=== PATIENT | female | born 1975 | race Caucasian/White ===

== ENCOUNTER 2021-01-28 03:33 | Emergency (ER) | payer MEDICARE, MEDICAID ==
[~2021-01-28] VITALS: Ht 157.5 cm; Wt 93.0 kg
[2021-01-28] MEDS ORDERED: ondansetron/PF 4mg/2ml inj IV ONE (04:15)
[2021-01-28] MEDS ORDERED: normal saline 1000ML IV soln IVB ONE (04:15)
[2021-01-28 04:30] LABS: BASOPHILS # (AUTO) 0.1 X10'3 (0-0.2); BASOPHILS % (AUTO) 0.3 % (0-1); EOSINOPHILS # (AUTO) 0.9 X10'3 (0-0.9); EOSINOPHILS % (AUTO) 4.6 % (0-6); HEMATOCRIT 46.4 % (35.0-45.0); HEMOGLOBIN 15.7 g/dl (12.0-16.0); LYMPHOCYTES # (AUTO) 1.4 X10'3 (1.1-4.8); LYMPHOCYTES % (AUTO) 7.1 % (21-51); MEAN CORPUSCULAR HEMOGLOBIN 29.2 PG (27.0-31.0); MEAN CORPUSCULAR HGB CONC 33.9 g/dL (33.0-36.5); MEAN CORPUSCULAR VOLUME 86.3 FL (78-98); MEAN PLATELET VOLUME 7.7 FL (7.4-10.4); MONOCYTES # (AUTO) 0.6 X10'3 (0-0.9); MONOCYTES % (AUTO) 3.1 % (2-12); NEUTROPHILS # (AUTO) 16.2 X10'3 (1.8-7.7); NEUTROPHILS % (AUTO) 84.9 % (42-75); PLATELET COUNT 417 X10'3 (140-440); RED BLOOD COUNT 5.38 X10'6 (4.20-5.60); RED CELL DISTRIBUTION WIDTH 14.7 % (11.5-14.5); WHITE BLOOD COUNT 19.1 X10'3 (4.5-11.0)
[2021-01-28 04:43] LABS: URINE HCG NEGATIVE (NEG)
[2021-01-28 04:45] LABS: ALANINE AMINOTRANSFERASE 34 U/L (12-78); ALBUMIN/GLOBULIN RATIO 0.9 (1.1-1.5); ALKALINE PHOSPHATASE 71 IU/L (46-116); ANION GAP 16 (8-16); ASPARTATE AMINO TRANSFERASE 23 U/L (10-37); BILIRUBIN,TOTAL 0.6 MG/DL (0.1-1.0); BLOOD UREA NITROGEN 12 MG/DL (7-18); BUN/CREATININE RATIO 11.5 (6.6-38.0); CALCIUM 8.5 MG/DL (8.5-10.1); CHLORIDE 105 MMOL/L (99-107); CREATININE 1.04 MG/DL (0.40-0.90); GLUCOSE 165 MG/DL (70-104); LIPASE 70 U/L (73-393); POTASSIUM 4.2 MMOL/L (3.5-5.1); SODIUM 139 MMOL/L (135-145); TOTAL CARBON DIOXIDE 17.9 MMOL/L (24-32); TOTAL PROTEIN 8.5 G/DL (6.4-8.2); eGFR 58 ML/MIN
[2021-01-28 04:55] LABS: CLARITY,URINE SLIGHTLY CLOUDY (Clear); COLOR,URINE YELLOW (Yellow); UA COLLECTION TYPE CLN CATCH MIDSTREAM
[2021-01-28 04:56] LABS: GLUCOSE, URINE NEGATIVE (Neg); KETONES,URINE 15 mg/dl (Neg); LEUKOCYTE ESTERASE ,URINE NEGATIVE (Neg); NITRITES, URINE NEGATIVE (Neg); OCCULT BLOOD,URINE SMALL (Neg); PROTEIN,URINE TRACE mg/dl (Neg); UROBILINOGEN,URINE 0.2 E.U/dL (0.2-1.0)
[2021-01-28 05:00] LABS: BACTERIA,URINE 1+ /HPF (Neg); MUCUS STRANDS FEW /LPF (Neg); SQUAMOUS EPITHELIAL CELL,UR MODERATE /LPF (FEW)
[2021-01-28] MEDS ORDERED: CefTRIAXone 2gm/D5W 50ml BAG 50 ML IV ONE (06:05)
[2021-01-28] MEDS ORDERED: DOXY100C43 PO (08:27)
[2021-01-28] MEDS ORDERED: ALBU18HF2 INH (08:27)
[2021-01-28] MEDS ORDERED: PRED20TA PO (08:27)
[2021-01-28 08:56] VITALS: BP 152/88
== END 2021-01-28 09:00 | disposition home or self-care (01) ==
LOC: ER 03:34
DX: J20.9 Acute bronchitis, unspecified (principal); R05.9 Cough, unspecified; I88.0 Nonspecific mesenteric lymphadenitis; R10.84 Generalized abdominal pain; R19.7 Diarrhea, unspecified; F17.200 Nicotine dependence, unspecified, uncomplicated; F12.90 Cannabis use, unspecified, uncomplicated; Z79.2 Long term (current) use of antibiotics; Z79.899 Other long term (current) drug therapy
CPT/HCPCS: 36415; 71045; 74176; 80053; 81001; 81025; 83605; 83690; 84145; 85025; 87040; 87088; 96361; 96365; 96375; 99285; J0696; J2405; J7030

== ENCOUNTER 2021-10-15 12:12 | Day surgery (SDC) | payer MEDICARE, MEDICAID ==
[2021-10-13 09:30] LABS: ALBUMIN 3.7 G/DL (3.4-5.0); ALBUMIN/GLOBULIN RATIO 0.8 (1.1-1.5); ALKALINE PHOSPHATASE 68 IU/L (46-116); BLOOD UREA NITROGEN 6 MG/DL (7-18); CHLORIDE 105 MMOL/L (99-107); CREATININE 0.86 MG/DL (0.40-0.90); PRE OP ALT 31 U/L (30-65); PRE OP ANION GAP 10 (8-16); PRE OP AST 39 U/L (10-37); PRE OP BILIRUB, TOTAL 0.4 MG/DL (0.0-1.0); PRE OP GLUCOSE 94 MG/DL (70-104); PRE OP POTASSIUM 4.5 MMOL/L (3.4-5.1); PRE OP SODIUM 138 MMOL/L (135-145); TOTAL CARBON DIOXIDE 22.9 MMOL/L (24-32); TOTAL PROTEIN 8.2 G/DL (6.4-8.2); eGFR 72 ML/MIN
[2021-10-13 09:36] LABS: BASOPHILS # (AUTO) 0.1 X10'3 (0-0.2); BASOPHILS % (AUTO) 0.9 % (0-1); EOSINOPHILS # (AUTO) 0.2 X10'3 (0-0.9); EOSINOPHILS % (AUTO) 2.9 % (0-6); LYMPHOCYTES # (AUTO) 2.9 X10'3 (1.1-4.8); LYMPHOCYTES % (AUTO) 33.5 % (21-51); MEAN CORPUSCULAR HEMOGLOBIN 28.7 PG (27.0-31.0); MEAN CORPUSCULAR HGB CONC 33.4 g/dL (33.0-36.5); MEAN PLATELET VOLUME 8.2 FL (7.4-10.4); MONOCYTES # (AUTO) 0.6 X10'3 (0-0.9); MONOCYTES % (AUTO) 6.8 % (2-12); NEUTROPHILS # (AUTO) 4.8 X10'3 (1.8-7.7); NEUTROPHILS % (AUTO) 55.9 % (42-75); PRE OP HEMOGLOBIN 14.4 g/dL (12.0-16.0); PRE OP PLATELET COUNT 317 X10'3 (140-440); RED CELL DISTRIBUTION WIDTH 15.2 % (11.5-14.5)
[~2021-10-15] VITALS: Ht 162.6 cm; Wt 85.0 kg
[~2021-10-15 12:12] MED LIST: INDOCYANINE GREEN 25 MG/10 ML VIAL IV ONE; NO HOME MEDS; ceFAZolin inj. 2,000 MG in dextrose 5%-water 100 ML IV ONE; famotidine 20mg tablet PO ONE; ringers solution, lacted 1,000 ML IV SCH
[2021-10-15 12:53] VITALS: BP 138/74
[2021-10-15] MEDS ORDERED: LIDOcaine 1% 30ml preserv. free vial ONE (12:55)
[2021-10-15] MEDS ORDERED: BUPIVAcaine/PF 2.5 mg/ml (0.25%) 30ml vial ONE (12:55)
[2021-10-15] MEDS ORDERED: sevoflurane 250ml liquid IH ONE (13:57)
[2021-10-15] MEDS ORDERED: neostigmine methylsulfate 1 MG/ML 10ml vial ONE (13:57)
[2021-10-15] MEDS ORDERED: ondansetron/PF 4mg/2ml inj ONE (13:57)
[2021-10-15] MEDS ORDERED: dexamethasone sod phosphate 10mg/ml inj ONE (13:57)
[2021-10-15] MEDS ORDERED: ketorolac trometh. 30mg/ml inj. ONE (13:57)
[2021-10-15] MEDS ORDERED: glycopyrrolate 0.2mg/ml inj ONE (13:57)
[2021-10-15] MEDS ORDERED: proCHLORperazine 10 MG/2 ml inj IV PRN (14:00)
[2021-10-15] MEDS ORDERED: ondansetron/PF 4mg/2ml inj IV PRN (14:00)
[2021-10-15] MEDS ORDERED: morphine 4 MG/ML inj SYRINge IV PRN (14:00)
[2021-10-15] MEDS ORDERED: meperidine/PF 25mg/ml syringe IV PRN ×3 (14:00)
[2021-10-15] MEDS ORDERED: morphine 2 MG/ML inj. syringe IV PRN (14:00)
[2021-10-15] MEDS ORDERED: ringers solution, lacted 1,000 ML IV SCH (14:00)
[2021-10-15] MEDS ORDERED: fentaNYL/PF 50MCG/1 ML 2ML syringe ONE (14:01)
[2021-10-15] MEDS ORDERED: midazolam 1 mg/ML 2ml injection ONE (14:01)
[2021-10-15] MEDS ORDERED: meperidine/PF 25mg/ml syringe ONE (14:01)
[2021-10-15] MEDS ORDERED: propofol inj 20 ML IV ONE (14:14)
[2021-10-15] MEDS ORDERED: rocuronium 10mg/ml inj IV ONE (14:14)
[2021-10-15] MEDS ORDERED: LIDOcaine 2% (20mg/ml) 5ml vial ONE (14:14)
[2021-10-15 15:19] VITALS: BP 138/60
--- NOTE | 2021-10-15 15:19 | NUR ---
Received from OR via [facility] IN STABLE CONDITION , accompanied by Anesthesiologist and AVIONICS TECHNICIAN report given by AVIONICS TECHNICIAN AND Anesthesiolgist. Addendum: 10/15/21 at 1553 by Adrianna Hidalgo RN Amended: Links added.
[2021-10-15 15:30] VITALS: BP 135/74
[2021-10-15] MEDS ORDERED: oxyCODONE/APAP 5-325mg tablet PO PRN (15:30)
[2021-10-15 15:40] VITALS: BP 152/89
[2021-10-15 15:50] VITALS: BP 150/74
[2021-10-15 16:00] VITALS: BP 147/82
--- NOTE | 2021-10-15 16:29 | NUR ---
PATIENT DISCHARGED FROM PACU IN STABLE CONDITION AFTER WRITTEN AND VERBAL DISCHARGE INSTRUCTIONS GIVEN. PATIENT GAVE VERBAL UNDERSTANDING OF INSTRUCTIONS GIVEN. PATIENT LEFT FACILITY VIA WHEELCHAIR WITH RN. Addendum: 10/15/21 at 1700 by Adrianna Hidalgo RN Amended: Links added.
== END 2021-10-15 16:29 | disposition home or self-care (01) ==
LOC: PAS 12:12
PROVIDERS: ATTEND Surgery
DX: K80.20 Calculus of gallbladder without cholecystitis without obstruction (principal); G43.909 Migraine, unspecified, not intractable, without status migrainosus; F17.210 Nicotine dependence, cigarettes, uncomplicated; F41.8 Other specified anxiety disorders; Z79.899 Other long term (current) drug therapy; Z98.890 Other specified postprocedural states
CPT/HCPCS: 36415; 47563; 80053; 82948; 85025; 87811; 93005; J0690; J2175; J2250; J2704; J3010; J3490; J7030; J7060; J7120; Z7506; Z7508; Z7512; A4215; A4618; A7000; J1100; J1885; J2405; J2710